=== PATIENT | male | born 1965 | race Caucasian/White ===

== ENCOUNTER 2020-07-08 07:42 | Emergency (ER) | payer BC ==
--- OUTSIDE RECORDS SUMMARY | 2020-07-08 07:45 | XMS REPORT | Continuity of Care Document ---
:1965 Author Organization [facility] t Address [address] [place] [address] Care Team Providers Name Role Phone Unavailable Unavailable Unavailable Problems Condition Condition Condition Status Onset Resolution Last Treating Co mments Source Name Details Category Date Date Treatment Clinician Date Hyperchole Hyperchole Problem Active [facility] sterolemia sterolemia Lulú kes - [facility] l [facility] Allergic All[facility] Problem [facility], [facility] Luke [facility] - unspecifie unspecifie Me moria d d l seasonalit seasonalit Ou tpati y, y, ent unspecifie unspecifie Cl inics d trigger d trigger Hypertensi Hypertensi Diagnosis Active [facility] on, on, [facility] - unspecifie unspecifie Me moria d type d type l [facility] Anxiety Anxiety Problem [facility] Disorder Disorder Problem [facility] - prostate prostate Memori a l Outpati ent Clinics Benign Benign Diagnosis Active [facility] prostatic prostatic Luke s - hyperplasi hyperplasi Me moria a, a, l unspecifie unspecifie Ou tpati d whether d whether ent lower lower Clinics urinary urinary tract tract symptoms symptoms present present Asthma, Asthma, Problem Active [facility] unspecifie unspecifie Lulú kes - d asthma d asthma Memori a severity, severity, l unspecifie unspecifie Ou tpati d whether d whether ent complicate complicate Cl inics d, d, unspecifie unspecifie d whether d whether persistent persistent Gastroesop Gastroesop Problem Active [facility] hageal hageal [facility] - reflux reflux Memoria disease, disease, l esophagiti esophagiti Ou tpati s presence s presence en t not not Clinics specified specified Tinea Tinea Problem Active [facility] pedis of pedis of [facility] - both feet both feet Keo jaclyn l [facility] Rash and Rash and Diagnosis Active [facility] nonspecifi nonspecifi Lulú kes - c skin c skin Memoria eruption eruption l [facility] ent Clinics Skin Skin Problem Active [facility] lesions lesions [facility] - Memoria l [facility] Clin[facility] Other Other Problem Active [facility] chronic chronic [facility] - pain pain Memoria l [facility] Low back Low back Problem Active [facility] pain pain [facility] - Memoria l [facility]ics Pain in Pain in Problem Active [facility] thoracic thoracic [facility] - spine spine Memoria l [facility]ics Neck pain Neck pain Problem Active [facility] - [facility] Scoliosis, Scoliosis, Problem Active [facility] unspecifie unspecifie Lulú kes - d d Memoria scoliosis scoliosis l type, type, Outpati unspecifie unspecifie en t d spinal d spinal Clinic s region region Allergies, Adverse Reactions, Alerts Allergy Allergy Status Severity Reaction(s) Onset Inactive Treating Comm ents Source Name Type Date Date Clinician Azithrom Adverse Active Info Not [facility] ycin Reaction Available [facility] - Memoria l [facility] Medications Ordered Filled Start Stop Current Ordering Indication Dosage Frequency Signature Comments Components Source Medication Medication Date Date Medication? Clinician (SIG) Name Name Clotrimazol Clotrimazol 2020-0 2020- No Marilia [address] [facility] e e 09-01 Millender applicatio Jim es - 00:00: 00:00 n to Memoria 00 :00 affected l area(s) [facility] ent [facility] Omeprazole Omeprazole Yes Marilia [address] [facility] [address] Millender [facility] - Memoria l [facility] Atorvastati Atorvastati Yes Marilia [address] [facility] n Calcium n Calcium Millender in evening [facility] - Memoria l [facility] Alfuzosin Alfuzosin Yes Marilia [address] [facility] HCl ER HCl ER Millender immediatel [facility] - y after Memoria the same l meal [facility]ics Duloxetine Duloxetine Yes Marilia [address] [facility] HCl HCl Millender [facility] - Memoria l [facility] Pataday Pataday Yes Marilia not [facility] Millender defined [facility] - Memoria l [facility] Olmesartan Olmesartan Yes Marilia [address] Medoxomil Medoxomil Millender [facility] - Memoria l [facility]ics Losartan Losartan Yes Marilia [address] Potassium Potassium [facility] Nasonex Nasonex Yes Marilia [address] Millender in each [facility] - nostril [facility] Omeprazole Omeprazole Yes Marilia [address] [facility] Millender [facility] - [facility] Finasteride Finasteride No Marilia [address] [facility] 05-29 Millender [facility] - 00:00 Memoria :00 l [facility] Tamsulosin Tamsulosin No Marilia [address] HCl HCl 05-29 Millender [facility] - 00:00 Memoria :00 l [facility] Desloratadi Desloratadi Marilia [address] [facility] [address] ne ne 05-29 Millender [facility] - 00:00 Memoria :00 [facility] Immunizations Ordered Filled Immunization Date Status Comments Sourc e Immunization Name Name Flucelvax - single Flucelvax - single 2018-02-[address] [facility] - dose syringe dose syringe 00:00:00 [facility] Procedures This patient has no known procedures. Encounters Start End Encounter Admission Attending Care Care Encounter Source Date/Time Date/Time Type Type Clinicians Facility Department ID 2019-09-02 2019-09-02 [facility] [id number] [facility] 14:45[facility]00 14:45:00 [facility] Medicine Outpati ent Clinics 2019-03-03 2019-03-03 [facility] [id number] 16:00:00 16:00:00 [facility] Medicine Medicine Outpati ent Clinics 2018-11-10 2018-11-10 [facility] [id number] [address] 10:18:00 10:18:00 [facility] Medicine Medicine Outpati ent Clinics 2018-08-28 2018-08-28 [facility] [id number] [address] 09:09:00 09:09:00 [facility] Medicine Outpati ent Clinics 2018-08-07 2018-08-07 [facility] [id number] [address] 16:00:00 16:00:00 [facility] 2018-06-30 2018-06-30 [facility] [id number] 14[facility]37:00 14:37:00 [facility] Outpati ent Clinics 2018-02-20 2018-02-20 [facility] [id number] 14:15:00 14:15:00 [facility] 2017-08-08 2017-08-08 [facility] [id number] 15:30:00 15:30:00 [facility] Results This patient has no known results.
--- NOTE | 2020-07-08 09:13 | EDPHYS ---
Physician Documentation [facility] Name: Bart Gabriel III Age: 54 yrs Sex: Male : 1965 Arrival Date: 07/08/2020 Time: 07:45 Bed External Waiting Private MD: ED Physician Toni Oviedo HPI: 07/08 18:23 This 54 yrs old Male presents to ER via Ambulatory with complaints of Ear kdr Pain. 18:23 The patient presents with a fullness, pain, swelling, tenderness. The complaints affect kdr the right ear. Onset: The symptoms/episode began/occurred gradually, 1 week(s) ago. Modifying factors: The symptoms are alleviated by nothing, the symptoms are aggravated by pulling on ears, touching. Associated signs and symptoms: The patient has no apparent associated signs or symptoms. Severity of symptoms: At their worst the symptoms were mild in the emergency department the symptoms are unchanged. The patient has not experienced similar symptoms in the past. The patient has been recently seen by a physician: the patient's primary care provider, yesterday. The patient was given Ciprodex for his ear infection yesterday and has apparently had an allergic reaction to the medication and his ear is now swollen with the TM only slightly visible. Historical: - Allergies: 07:51 Zithromax; ss - PMHx: 07:51 Hypertension; High Cholesterol; enlaraged prostate; ss - Immunization history:: Adult Immunizations up to date. - Social history:: Smoking status: Patient reports the use of cigarette tobacco products, 1 pp week. ROS: 18:23 Constitutional: Negative for fever, chills, and weight loss, Eyes: Negative for injury, kdr pain, redness, and discharge, Neck: Negative for injury, pain, and swelling. 18:23 ENT: Positive for ear pain, Swelling of right ear. Exam: 18:23 Constitutional: This is a well developed, well nourished patient who is awake, alert, kdr and in no acute distress. Head/Face: Normocephalic, atraumatic. Eyes: Pupils equal round and reactive to light, extra-ocular motions intact. Lids and lashes normal. Conjunctiva and sclera are non-icteric and not injected. Cornea within normal limits. Periorbital areas with no swelling, redness, or edema. Neck: Trachea midline, no thyromegaly or masses palpated, and no cervical lymphadenopathy. Supple, full range of motion without nuchal rigidity, or vertebral point tenderness. No Meningismus. 18:23 ENT: External ear(s): erythema, that is moderate, of the pinna of right ear, right ear lobe, right ear canal and right preauricular area, Ear canal(s): erythema, swelling, that is moderate, of the right canal, TM's: dullness, on the right, Examination of the other ear shows no obvious abnormality. Vital Signs: 07:49 Weight 77.11 kg; Height 5 ft. 4 in. (162.56 cm); ss 07:51 BP 144 / 90; Pulse 97; Resp 16; Temp 97.5(TE); Pulse Ox 99% on R/A; Pain 6/10; ss 09:00 BP 128 / 89; Pulse 76; Resp 16 S; Pulse Ox 98% ; ec1 07:49 Body Mass Index 29.18 (77.11 kg, 162.56 cm) ss Procedures: 18:23 Performed Wick installation. A standard un modified ear wick was inserted in the right kdr ear. The patient tolerated well and there was no complication. MDM: 09:12 Patient medically screened. kdr 18:30 Data reviewed: vital signs, nurses notes. Counseling: I had a detailed discussion with kdr the patient and/or guardian regarding: the historical points, exam findings, and any diagnostic results supporting the discharge/admit diagnosis, the need for outpatient follow up. 07/08 09:11 Order name: [facility] [place] [facility]. Order: Give the abx bottle to the patient to take home; Complete kdr Time: 09:14 Administered Medications: 09:17 Drug: Osokzdyd-Bqsxljryg-DI Drops 2 drops Route: Otic; Site: right ear; ec1 Disposition: 07/08/20 09:12 Discharged to Home. Impression: Otitis externa, Otitis externa in other diseases classified elsewhere, right ear. - Condition is Stable. - Discharge Instructions: Otitis Externa, [id number]. - Prescriptions for neomycin- polymyxin-HC 3.5-10,000-1 mg/mL-unit/mL-% Otic solution - instill 4 drop by OTIC route 3 times per day Continue for one week; 1 bottle. Tramadol 50 mg Oral Tablet - take 1 tablet by ORAL route every 8 hours As needed as needed; 16 tablet. - Medication Reconciliation Form, Thank You Letter, Antibiotic Education, Work release form form. - Follow up: Private Physician; When: 2 - 3 days; Reason: If symptoms return, Further diagnostic work-up, Recheck today's complaints, Continuance of care, Re-evaluation by your physician. Follow up: Kate Mcmullen MD; When: 2 - 3 days; Reason: If symptoms return, Further diagnostic work-up, Recheck today's complaints, Continuance of care, Re-evaluation by your physician. - Problem is new. - Symptoms are unchanged. Signatures: Toni Oviedo MD MD [facility] Aura Morales RN RN ss Marely Hudson RN RN ec1 Corrections: (The following items were deleted from the chart) 09: 09:12 07/08/2020 09:12 Discharged to Home. Impression: Otitis externa; Otitis externa ec1 in other diseases classified elsewhere, right ear. Condition is Stable. Forms are Medication Reconciliation Form, Thank You Letter, Antibiotic Education, Prescription Opioid Use. Follow up: Private Physician; When: 2 - 3 days; Reason: If symptoms return, Further diagnostic work-up, Recheck today's complaints, Continuance of care, Re-evaluation by your physician. Follow up: Kate Mcmullen; When: 2 - 3 days; Reason: If symptoms return, Further diagnostic work-up, Recheck today's complaints, Continuance of care, Re-evaluation by your physician. Problem is new. Symptoms are unchanged. kdr 13:31 09:26 07/08/2020 09:12 Discharged to Home. Impression: Otitis externa; Otitis externa ss in other diseases classified elsewhere, right ear. Condition is Stable. Discharge Instructions: Otitis Externa, Hhqw-hx-Zhio. Prescriptions for endzlzal-qtxeicnoo-EC 3.5-10,000-1 mg/mL-unit/mL-% Otic solution - instill 4 drop by OTIC route 3 times per day Continue for one week; 1 bottle. and Forms are Medication Reconciliation Form, Thank You Letter, Antibiotic Education, Work release form. Follow up: Private Physician; When: 2 - 3 days; Reason: If symptoms return, Further diagnostic work-up, Recheck today's complaints, Continuance of care, Re-evaluation by your physician. Follow up: Kate Mcmullen; When: 2 - 3 days; Reason: If symptoms return, Further diagnostic work-up, Recheck today's complaints, Continuance of care, Re-evaluation by your physician. Problem is new. Symptoms are unchanged. ec1
--- NOTE | 2020-07-08 09:13 | ER ---
Nurse's Notes [facility] Name: Bart Gabriel III Age: 54 yrs Sex: Male : 1965 Arrival Date: 07/08/2020 Time: 07:45 Bed External Waiting Private MD: Diagnosis: Otitis externa;Otitis externa in other diseases classified elsewhere, right ear Presentation: 07/08 07:49 Chief complaint: Patient states: "I've been fighting an ear infection and they gave me ss some ear drops yesterday, but it made my ear swell up and close.". Coronavirus screen: Client denies travel out of the [place] in the last 14 days. Ebola Screen: Patient denies exposure to infectious person. Patient denies travel to an Ebola-affected area in the 21 days before illness onset. Initial Sepsis Screen: Does the patient meet any 2 criteria? No. Patient's initial sepsis screen is negative. Does the patient have a suspected source of infection? No. Patient's initial sepsis screen is negative. Risk Assessment: Do you want to hurt yourself or someone else? Patient reports no desire to harm self or others. Onset of symptoms was July 05, 2020. 07:49 Method Of Arrival: Ambulatory ss 07:49 Acuity: NIKITA 5 ss Historical: - Allergies: 07:51 Zithromax; ss - PMHx: 07:51 Hypertension; High Cholesterol; enlaraged prostate; ss - Immunization history:: Adult Immunizations up to date. - Social history:: Smoking status: Patient reports the use of cigarette tobacco products, 1 pp week. Screenin:49 Abuse screen: Denies threats or abuse. Denies injuries from another. Nutritional ss screening: No deficits noted. Tuberculosis screening: Never had TB. Fall Risk None identified. Assessment: 07:49 General: Appears in no apparent distress. comfortable, Behavior is calm, cooperative. ss Pain: Complains of pain in right ear Pain currently is 6 out of 10 on a pain scale. Quality of pain is described as aching, pressure, tender, Is continuous. Neuro: Level of Consciousness is awake, alert, obeys commands, Oriented to person, place, time, situation. Neuro: Denies dizziness. Cardiovascular: Capillary refill < 3 seconds is brisk in bilateral fingers. Respiratory: Airway is patent Respiratory effort is even, unlabored, Respiratory pattern is regular, symmetrical. GI: Patient currently denies nausea. EENT: Nares are clear Oral mucosa is moist. Throat is clear. Derm: Skin is intact, is healthy with good turgor, Skin is pink, warm \\T\\ dry. normal. Vital Signs: 07:49 Weight 77.11 kg; Height 5 ft. 4 in. (162.56 cm); ss 07:51 BP 144 / 90; Pulse 97; Resp 16; Temp 97.5(TE); Pulse Ox 99% on R/A; Pain 6/10; ss 09:00 BP 128 / 89; Pulse 76; Resp 16 S; Pulse Ox 98% ; ec1 07:49 Body Mass Index 29.18 (77.11 kg, 162.56 cm) ED Course: 07:45 Patient arrived in ED. ds1 07:49 Patient has correct armband on for positive identification. ss 07:50 Triage completed. ss 07:51 Arm band placed on right wrist. ss 08:33 Aura Morales RN is Primary Nurse. ss 08:33 Toni Oviedo MD is Attending Physician. kdr 09:06 Primary Nurse role handed off by Aura Morales RN ec1 09:06 Marely Hudson RN is Primary Nurse. ec1 09:11 Kate Mcmullen MD is Referral Physician. kdr 09:25 No provider procedures requiring assistance completed. Patient did not have IV access ec1 during this emergency room visit. 13:29 Primary Nurse role handed off by Marely Hudson RN Administered Medications: 09:17 Drug: Tmghpcoq-Aclreegln-UA Drops 2 drops Route: Otic; Site: right ear; ec1 Outcome: 09:12 Discharge ordered by . kdr 09:25 Discharged to home ambulatory. ec1 09:25 Condition: good 09:25 Discharge instructions given to patient, Instructed on discharge instructions, follow up and referral plans. Demonstrated understanding of instructions, follow-up care, medications, Prescriptions given X 1. 09:26 Patient left the ED. ec1 13:31 Patient left the ED. Signatures: Toni Oviedo MD MD [facility] Rosio Delcid ds1 Aura Morales RN RN Marely Hudson RN RN ec1
[2020-07-08] MEDS ORDERED: NEOMY/POLY/HC 1% OTIC DROPS ONE (09:31)
[2020-07-08 09:56] VITALS: TEMP 97.5
[2020-07-08 09:58] VITALS: BP 128/89; O2SAT 98
== END 2020-07-08 13:31 | disposition home or self-care (01) ==
LOC: ER 07:42
DX: H60.91 Unspecified otitis externa, right ear (principal); I10 Essential (primary) hypertension; F17.210 Nicotine dependence, cigarettes, uncomplicated; Z88.1 Allergy status to other antibiotic agents
CPT/HCPCS: 99283

== ENCOUNTER 2024-06-18 18:26 | Emergency (ER) | payer BC ==
--- OUTSIDE RECORDS SUMMARY | 2024-06-18 18:29 | XMS REPORT | Continuity of Care Document ---
Author Name Unknown Address [address] [facility] [address] [place] [address] [facility] thconnect Address [address] [facility] [address] [place] [address] Care Team Providers Care Radiator Specialist Name Role Phone Brigitte Gonzales Attending Clinician Unavailable Marilia Crane Attending Clinician Unavailable Payers Payer Name Policy Type Policy Number Effective Date Expirati on Date Source [place] [id number] [facility] Problems Condition Name Condition Details Condition Category Status Onset Date Resolution Date Last Treatment Date Treating Clinician Comments Source [id number] Hyperchole sterolemia Problem Active [facility] [id number] Allergic rhinitis, unspecifie d seasonalit y, unspecifie d trigger Problem Active [facility] [id number] Gastroesop hageal reflux disease, esophagiti s presence not specified Problem Active [facility] [id number] Benign prostatic hyperplasi a, unspecifie d whether lower urinary tract symptoms present Problem Active [facility] [id number] Asthma, unspecifie d asthma severity, unspecifie d whether complicate d, unspecifie d whether persistent Problem Active [facility] Disorder of prostate Disorder of prostate Problem Active [facility] [id number] Tinea pedis of both feet Problem Active [facility] [id number] Rash and nonspecifi c skin eruption Problem Active [facility] [id number] Low back pain Problem Active [facility] Anxiety Anxiety Problem Active [facility] Neck pain Neck pain Problem Active [facility] [id number] Hypertensi on, unspecifie d type Problem Active [facility] [id number] Skin lesions Problem Active [facility] [id number] Scoliosis, unspecifie d scoliosis type, unspecifie d spinal region Problem Active [facility] [id number] Pain in thoracic spine Problem Active [facility] [id number] Other chronic pain Problem Active [facility] Allergies, Adverse Reactions, Alerts Allergy Name Allergy Type Status Severity Reaction(s) Onset Date Inactive Date Treating Clinician Comments Source ciproflo xacin ciproflo xacin Active swelling [facility] 194 Drug allergy Active rash [facility] Social History Social Habit Start Date Stop Date Quantity Comments Source History of Tobacco Use Current Smoker [facility] Sex Assigned At [facility] Smoking Status Start Date Stop Date Source Current Smoker 2024-06-11 00:00:00 [facility] Medications Ordered Medication Name Filled Medication Name Start Date Stop Date Current Medication? Ordering Clinician Indication Dosage Frequency Signature (SIG) Comments Components Source Paxlovid (300/100) 20 x 150 MG & 10 x 100MG Paxlovid (300/100) 20 x 150 MG & 10 x 100MG 06-12 00:00: 00 No 3{table ts} BID Paxlovid (300/100) 20 x 150 MG & 10 x 100MG Montelukast Sodium 10 MG Montelukast Sodium 10 MG No 1{table t} QD Montelukas t Sodium 10 MG Pataday 0.2 % Pataday 0.2 % No Pataday 0.2 % Nasonex 50 MCG/ACT Nasonex 50 MCG/ACT No 2{spray s_in_ea ch_nost ril} QD Nasonex 50 MCG/ACT Atorvastati n Calcium 40 MG Atorvastati n Calcium 40 MG No Atorvastat in Calcium 40 MG Omeprazole 20 MG Omeprazole 20 MG No QD Omeprazole 20 MG DULoxetine HCl 30 MG DULoxetine HCl 30 MG No DULoxetine HCl 30 MG Losartan Potassium 50 MG Losartan Potassium 50 MG No 1{table t} QD Losartan Potassium 50 MG Immunizations Ordered Immunization Name Filled Immunization Name Date Status Comments Source Flucelvax - single dose syringe Flucelvax - single dose syringe 2018-02-20 14:53:00 Completed [facility] Flucelvax - single dose syringe Flucelvax - single dose syringe 2018-02-20 14:53:00 Completed [facility] Flucelvax - single dose syringe Flucelvax - single dose syringe 2018-02-20 00:00:00 [facility] Flucelvax - single dose syringe Flucelvax - single dose syringe Unknown Completed [facility] Flucelvax - single dose syringe Flucelvax - single dose syringe Unknown Completed [facility] Flucelvax (ccIIV4) - SDS - 0.5mL Flucelvax (ccIIV4) - SDS - 0.5mL Unknown Completed [facility] Flucelvax (ccIIV4) - SDS - 0.5mL Flucelvax (ccIIV4) - SDS - 0.5mL Unknown Completed [facility] Vital Signs Vital Name Observation Time Observation Value Comments S thuan height 2024-06-11 15:40:00 64.75 [in_i] [facility] weight 2024-06-11 15:40:00 168 [lb_av] Comm on [facility] bmi 2024-06-11 15:40:00 28.17 kg/m2 Comm on [facility] height 2023-12-09 14:40:00 64.75 [in_i] [facility] weight 2023-12-09 14:40:00 164.8 [lb_av] Co [facility] temperature 2023-12-09 14:40:00 97.9 [degF] [facility] bmi 2023-12-09 14:40:00 27.63 kg/m2 Comm on [facility] oximetry 2023-12-09 14:40:00 99 % Commo n [facility] respiratory rate 2023-12-09 14:40:00 16 /min [facility] blood pressure systolic 2023-12-09 14:40:00 135 mm[Hg] [facility] blood pressure diastolic 2023-12-09 14:40:00 88 mm[Hg] [facility] height 2023-04-16 08:20:00 64.75 [in_i] [facility] weight 2023-04-16 08:20:00 165.2 [lb_av] Co [facility] temperature 2023-04-16 08:20:00 97.0 [degF] [facility] bmi 2023-04-16 08:20:00 27.7 kg/m2 Com[facility] oximetry 2023-04-16 08:20:00 97 % [facility] respiratory rate 2023-04-16 08:20:00 16 /min [facility] blood pressure systolic 2023-04-16 08:20:00 138 mm[Hg] [facility] blood pressure diastolic 2023-04-16 08:20:00 83 mm[Hg] Common [facility] height 2022-11-14 16:20:00 64.75 [in_i] [facility] weight 2022-11-14 16:20:00 173.2 [lb_av] Co mmon [facility] temperature 2022-11-14 16:20:00 98.1 [degF] Com [facility] bmi 2022-11-14 16:20:00 29.04 kg/m2 Comm on [facility] oximetry 2022-11-14 16:20:00 95 % Com[facility] respiratory rate 2022-11-14 16:20:00 16 /min [facility] blood pressure systolic 2022-11-14 16:20:00 129 mm[Hg] [facility] blood pressure diastolic 2022-11-14 16:20:00 77 mm[Hg] [facility] height 2022-05-17 16:20:00 64.75 [in_i] Com [facility] weight 2022-05-17 16:20:00 167.4 [lb_av] Co mmon [facility] temperature 2022-05-17 16:20:00 97.0 [degF] Com [facility] bmi 2022-05-17 16:20:00 28.07 kg/m2 Comm on [facility] oximetry 2022-05-17 16:20:00 96 % Commo n [facility] respiratory rate 2022-05-17 16:20:00 16 /min [facility] blood pressure systolic 2022-05-17 16:20:00 116 mm[Hg] [facility] blood pressure diastolic 2022-05-17 16:20:00 70 mm[Hg] Common [facility] height 2021-08-17 08:20:00 64.75 [in_i] [facility] weight 2021-08-17 08:20:00 167 [lb_av] Comm on [facility] temperature 2021-08-17 08:20:00 98.6 [degF] Com [facility] bmi 2021-08-17 08:20:00 28 kg/m2 Commo n [facility] oximetry 2021-08-17 08:20:00 97 % Commo [facility] respiratory rate 2021-08-17 08:20:00 16 /min [facility] blood pressure systolic 2021-08-17 08:20:00 131 mm[Hg] [facility] blood pressure diastolic 2021-08-17 08:20:00 68 mm[Hg] [facility] height 2020-10-19 16:20:00 64.75 [in_i] Com [facility] weight 2020-10-19 16:20:00 168 [lb_av] Comm on [facility] temperature 2020-10-19 16:20:00 98.1 [degF] Com mon [facility] bmi 2020-10-19 16:20:00 28.17 kg/m2 Comm on [facility] oximetry 2020-10-19 16:20:00 96 % Commo [facility] respiratory rate 2020-10-19 16:20:00 16 /min [facility] blood pressure systolic 2020-10-19 16:20:00 124 mm[Hg] [facility] blood pressure diastolic 2020-10-19 16:20:00 73 mm[Hg] [facility] Encounters Start Date/Time End Date/Time Encounter Type Admission Type Attending Clinicians Care Facility Care Department Encounter ID Source 2024-06-09 10:40:00 Outpatient Brigitte Gonzales [facility] [id number] [facility] 2023-11-11 10:11:00 Outpatient WorthBrigitte darling [facility] [id number] [facility] 2021-06-07 12:45:34 Outpatient WorthBrigitte darling [facility] [id number] [facility] 2021-06-07 12:20:58 Outpatient WorthBrigitte darling [facility] [id number] [facility] 2021-06-07 11:19:00 Outpatient Marilia Crane [facility] [id number] [facility] 2024-06-11 00:00:00 2024-06-11 00:00:00 OFFICE VISIT ESTAB PT LEVEL 3 [facility]C ST[facility] [id number] [facility] 2024-06-08 00:00:00 2024-06-08 00:00:00 (TEL) STLMLC STLMLC [id number] [facility] 2023-12-09 00:00:00 2023-12-09 00:00:00 (ESTPT) Establishe d Patient STLMLC STLMLC [id number] [facility] 2023-04-16 00:00:00 2023-04-16 00:00:00 (WELLNESS) Wellness Visit [facility]C ST[facility]C [id number] [facility] 2022-11-14 00:00:00 2022-11-14 00:00:00 OFFICE VISIT ESTAB PT LEVEL 3 STLMLC STLMLC [id number] [facility] 2022-05-17 00:00:00 2022-05-17 00:00:00 OFFICE VISIT ESTAB PT LEVEL 3 STLMLC STLMLC [id number] [facility] 2021-08-21 00:00:00 2021-08-21 00:00:00 (TEL) STLMLC STLMLC [id number] [facility] 2021-08-17 00:00:00 2021-08-17 00:00:00 OFFICE VISIT EST PT LEVEL 3 [facility]LMLC STLMLC [id number] [facility] 2021-08-09 00:00:00 2021-08-09 00:00:00 (TEL) STLMLC STLMLC [id number] [facility] 2021-02-01 00:00:00 2021-02-01 00:00:00 (TEL) STLMLC STLMLC [id number] [facility] 2020-10-19 00:00:00 2020-10-19 00:00:00 OFFICE VISIT EST PT LEVEL 3 STLMLC STLMLC [id number] [facility] 2020-09-05 00:00:00 2020-09-05 00:00:00 (TEL) STLMLC [facility]C [id number] [facility] 2020-07-19 00:00:00 2020-07-19 00:00:00 Outpatient [facility] [id number] [facility] 2019-09-02 14:45:00 2019-09-02 14:45:[address] [facility] [id number] [facility] 2019-03-03 16:00:00 2019-03-03 16:00:00 [facility] [id number] [facility] 2018-11-10 10:18:00 2018-11-10 10:18:[address] [facility] [facility] [id number] [facility] 2018-08-28 09:09:00 2018-08-28 09:09:[address] [facility] [facility] [id number] [facility] 2018-08-07 16:00:00 2018-08-07 16:00:[address] [facility] [facility] [id number] [facility] 2018-06-30 14:37:00 2018-06-30 14:37:00 [facility] [id number] [facility] 2018-02-20 14:15:00 2018-02-20 14:15:00 [facility] [id number] [facility] 2017-08-08 15:30:00 2017-08-08 15:30:[address] [facility] [id number] [facility] Results Test Description Test Time Test Comments Results Result Co mments Source
--- NOTE | 2024-06-18 19:13 | EDPHYS ---
Physician Documentation [facility] Name: Bart Gabriel III Age: 58 yrs Sex: Male : 1965 Arrival Date: 06/18/2024 Time: 18:26 Bed IW9 Private MD: ED Physician Simeon Hicks HPI: 06/18 20:51 This 58 yrs old Male presents to ER via Ambulatory with complaints of Allergic ms3 Reaction, Rash. 20:51 58-year-old male with past medical history of enlarged prostate, hyperlipidemia, ms3 hypertension presents to the emergency department for rash that is developed on his lower abdomen wrapping around to his back bilaterally. Patient states symptoms have been present for 3 days and are itching. Patient has applied Benadryl with mild relief. Patient states he is also used calamine lotion. Patient notes he was started on Paxlovid for COVID when the rash began. Historical: - Allergies: 18:37 Zithromax; me1 - PMHx: 18:37 enlaraged prostate; High Cholesterol; Hypertension; me1 - Immunization history:: Adult Immunizations up to date. - Infectious Disease History:: Denies. - Social history:: Smoking status: Patient reports the use of cigarette tobacco products, denies chronic smoking, but will smoke occasionally. ROS: 20:51 Constitutional: Negative for fever, and chills. Cardiovascular: Negative for chest ms3 pain, and palpitations. Respiratory: Negative for shortness of breath, cough, wheezing, and pleuritic chest pain, Abdomen/GI: Negative for abdominal pain, nausea, vomiting, diarrhea, and constipation, MS/Extremity: Negative for injury and deformity, 20:51 Skin: Positive for rash, Exam: 20:51 Constitutional: This is a well developed, well nourished patient who is awake, alert, ms3 and in no acute distress. Cardiovascular: Regular rate and rhythm with a normal S1 and S2. No gallops, murmurs, or rubs. Normal PMI, no JVD. No pulse deficits. Respiratory: Lungs have equal breath sounds bilaterally, clear to auscultation and percussion. No rales, rhonchi or wheezes noted. No increased work of breathing, no retractions or nasal flaring. Abdomen/GI: Soft, non-tender, with normal bowel sounds. No distension or tympany. No guarding or rebound. No evidence of tenderness throughout. 20:51 Skin: urticaria, on the abdomen and buttocks and back, Vital Signs: 18:34 BP 146 / 93; Pulse 78; Resp 16; Temp 98.2; Pulse Ox 98% ; Weight 77.11 kg; Height 5 ft. me1 5 in. ; Pain 0/10; 19:38 BP 138 / 86; Pulse 78; Resp 16; Temp 98.1; Pulse Ox 100% ; me1 18:34 Body Mass Index 28.29 (77.11 kg, 165.1 cm) me1 18:34 Pain Scale: Adult me1 MDM: 19:12 Medical Screening Exam initiated ms3 20:51 Differential diagnosis: urticaria, Adverse medication reaction versus idiopathic ms3 urticaria. Data reviewed: vital signs, nurses notes, and as a result, I will discharge patient. I considered the following discharge prescriptions or medication management in the emergency department Medications were administered in the Emergency Department. See MAR. Historians other than the Patient: Parent: Patient's mother. Counseling: I had a detailed discussion with the patient and/or guardian regarding the historical points, exam findings, and any diagnostic results supporting the discharge/admit diagnosis, the need for outpatient follow up, to return to the emergency department if symptoms worsen or persist or if there are any questions or concerns that arise at home. Special discussion: I discussed with the patient/guardian in detail that at this point there is no indication for admission to the hospital. It is understood, however, that if the symptoms persist or worsen the patient needs to return immediately for re-evaluation. ED course: Patient given prescription for prednisone. Patient given prednisone, Pepcid, Benadryl in the emergency department. Patient airway intact, patient is alert and oriented x 4, in no apparent distress, nontoxic-appearing, ambulatory in the emergency room. Patient to follow-up with his primary care physician in 2 to 3 days. Patient understands and agrees with plan. All questions were answered. Return precautions discussed to include worsening symptoms, or any other concerns. Administered Medications: 19:38 Drug: predniSONE PO 40 mg PO once Route: PO; me1 19:38 Follow up: Response: No adverse reaction me1 19:38 Drug: diphenhydrAMINE PO 50 mg PO once Route: PO; me1 19:38 Follow up: Response: No adverse reaction me1 19:38 Drug: Famotidine PO 20 mg PO once Route: PO; me1 19:38 Follow up: Response: No adverse reaction me1 Disposition Summary: 06/18/24 19:13 Discharge Ordered Notes: Location: Home ms3 Condition: Stable ms3 Diagnosis - Allergic urticaria ms3 Followup: ms3 - With: Brian Stacy DO - When: 2 - 3 days - Reason: Recheck today's complaints Discharge Instructions: - Discharge Summary Sheet ms3 - Allergies, Adult ms3 - Hives ms3 - Rash, Adult, [id number] ms3 Forms: - Medication Reconciliation Form ms3 - Antibiotic Education ms3 - Prescription Opioid Use ms3 - Patient Portal Instructions ms3 - Leadership Thank You Letter ms3 Prescriptions: - Prednisone 20 mg Oral Tablet - take 2 tablets ORAL route once daily for 5 days; 10 tablet; Refills: 0, Product ms3 Selection Permitted Signatures: Simeon Hicks DO DO ms3 Mary Kay Sandy, RN RN me1
--- NOTE | 2024-06-18 19:13 | ER ---
Nurse's Notes [facility] Name: Bart Gabriel III Age: 58 yrs Sex: Male : 1965 Arrival Date: 06/18/2024 Time: 18:26 Bed IW9 Private MD: Diagnosis: Allergic urticaria Presentation: 06/18 18:34 Chief complaint: Patient states: has been taking paxlovid, started it on Saturday and me1 started developing a rash on Saturday that has worsened. Patient has a red raised rash to groin, buttocks, back and lower abdomen. Coronavirus screen: Vaccine status: Patient reports receiving the 2nd dose of the covid vaccine. Ebola Screen: No symptoms or risks identified at this time. Onset: The symptoms/episode began/occurred 5 day(s) ago. Anaphylaxis evaluation, no signs or symptoms of anaphylaxis were noted. Initial Sepsis Screen: Does the patient meet any 2 criteria? No. Patient's initial sepsis screen is negative. Does the patient have a suspected source of infection? No. Patient's initial sepsis screen is negative. Risk Assessment: Do you want to hurt yourself or someone else? Patient reports no desire to harm self or others. Onset of symptoms was June 13, 2024. 18:34 Method Of Arrival: Ambulatory [facility] 18:34 Acuity: NIKITA 4 me1 Triage Assessment: 18:37 General: Appears in no apparent distress. well groomed, well developed, well nourished, me1 Behavior is calm, cooperative, appropriate for age, Reports rash from paxlovid. Pain: Denies pain. EENT: No signs and/or symptoms were reported regarding the EENT system. Neuro: Level of Consciousness is awake, alert, obeys commands, Oriented to person, place, time, situation, Appropriate for age. Cardiovascular: Patient's skin is warm and dry. Respiratory: Airway is patent Respiratory effort is even, unlabored, Respiratory pattern is regular, symmetrical. GI: No signs and/or symptoms were reported involving the gastrointestinal system. : No signs and/or symptoms were reported regarding the genitourinary system. Derm: Rash noted that is red, raised, on back, buttocks, abdomen and pelvis. Musculoskeletal: No signs and/or symptoms reported regarding the musculoskeletal system. Historical: - Allergies: 18:37 Zithromax; me1 - PMHx: 18:37 enlaraged prostate; High Cholesterol; Hypertension; me1 - Immunization history:: Adult Immunizations up to date. - Infectious Disease History:: Denies. - Social history:: Smoking status: Patient reports the use of cigarette tobacco products, denies chronic smoking, but will smoke occasionally. Screenin:34 [facility] ED Fall Risk Assessment (Adult) History of falling in the last 3 months, me1 including since admission No falls in past 3 months (0 pts) Confusion or Disorientation No (0 pts) Intoxicated or Sedated No (0 pts) Impaired Gait No (0 pts) Mobility Assist Device Used No (0 pt) Altered Elimination No (0 pt) Score/Fall Risk Level 0 - 2 = Low Risk Maintained a safe environment, Provided non-skid footwear, Hourly rounding (assess needs \T\ fall precautionary measures) done. Abuse screen: Denies threats or abuse. Nutritional screening: No deficits noted. Tuberculosis screening: No symptoms or risk factors identified. Assessment: 19:34 General: See triage assessment. Respiratory: Airway is patent Trachea midline me1 Respiratory effort is even, unlabored, Respiratory pattern is regular, symmetrical, Breath sounds are clear bilaterally. Vital Signs: 18:34 BP 146 / 93; Pulse 78; Resp 16; Temp 98.2; Pulse Ox 98% ; Weight 77.11 kg; Height 5 ft. me1 5 in. ; Pain 0/10; 19:38 BP 138 / 86; Pulse 78; Resp 16; Temp 98.1; Pulse Ox 100% ; me1 18:34 Body Mass Index 28.29 (77.11 kg, 165.1 cm) me1 18:34 Pain Scale: Adult me1 ED Course: 18:29 Patient arrived in ED. im 18:37 Triage completed. me1 18:37 Arm band placed on Patient placed in waiting room. me1 18:45 Simeon Hicks DO is Attending Physician. ms3 19:13 Brian Stacy DO is Referral Physician. ms3 19:17 Ambika Jasso, DAPHNE is Primary Nurse. br2 19:34 Patient has correct armband on for positive identification. Bed in low position. Call me1 light in reach. Side rails up X2. Provided Education on: POC. Verbalized understanding.. 19:34 No provider procedures requiring assistance completed. Patient did not have IV access me1 during this emergency room visit. Administered Medications: 19:38 Drug: predniSONE PO 40 mg PO once Route: PO; me1 19:38 Follow up: Response: No adverse reaction me1 19:38 Drug: diphenhydrAMINE PO 50 mg PO once Route: PO; me1 19:38 Follow up: Response: No adverse reaction me1 19:38 Drug: Famotidine PO 20 mg PO once Route: PO; me1 19:38 Follow up: Response: No adverse reaction me1 Medication: 19:34 VIS not applicable for this client. me1 Outcome: 19:13 Discharge ordered by MD. ms3 19:38 Discharged to home ambulatory, me1 19:38 Condition: stable 19:38 Discharge instructions given to patient, family, Instructed on discharge instructions, follow up and referral plans. medication usage, Demonstrated understanding of instructions, follow-up care, medications, Prescriptions given X 1, 19:39 Patient left the ED. me1 Signatures: Simeon Hicks DO DO ms3 Gayatri Philip Michelle, RN RN me1 Ambika Jasso RN RN br2
[2024-06-18] MEDS ORDERED: predniSONE 20 MG TAB ONE (19:19)
[2024-06-18] MEDS ORDERED: FAMOTIDINE 20 MG TAB ONE (19:20)
[2024-06-18] MEDS ORDERED: DIPHENHYDRAMINE 25 MG TAB/CAP ONE (19:20)
[2024-06-18 19:51] VITALS: BP 138/86; TEMP 98.1; O2SAT 100
== END 2024-06-18 19:39 | disposition home or self-care (01) ==
LOC: ER 18:26
DX: L50.0 Allergic urticaria (principal); F17.210 Nicotine dependence, cigarettes, uncomplicated
CPT/HCPCS: 99283; J7512